=== PATIENT | female | born 1975 | race American Indian/Alaskan Native ===

== ENCOUNTER 2019-10-01 17:14 | Emergency (ER) | payer MEDICARE ==
[2019-10-01] MEDS ORDERED: ONDANSETRON 4 MG ODT TAB PO ONE (19:49)
[2019-10-01] MEDS ORDERED: ACETAMINOPHEN 500 MG TAB PO ONE (19:49)
--- NOTE | 2019-10-01 19:52 | Emergency Department Report ---
Chief Complaint: Upper Respiratory Infection Stated Complaint: COLD/HEAD PAIN - HPI History of Present Illness: 44 y/o F p/w a cc of Chest congestion, cough, MOSER, n/v and subj fever. +sick contacts - Exam Vital Signs: Vital Signs 10/01/19 19:48 Temperature 100.6 F H Pulse Rate 103 H Respiratory 20 Rate Blood Pressure 144/106 [Left] O2 Sat by Pulse 98 Oximetry MSE screening note: Focused history and physical exam performed. Due to findings the following was ordered: CXR, rapid flu tylenol, zofran odt ED Disposition for MSE Condition: Stable
--- NOTE | 2019-10-01 20:37 | XRay Report ---
CHEST 1 VIEW INDICATION / CLINICAL INFORMATION: cough, fever. COMPARISON: None available. FINDINGS: SUPPORT DEVICES: None. HEART / MEDIASTINUM: No significant abnormality. LUNGS / PLEURA: Patchy opacity is identified in both upper lungs and in the area of the lingular segm ent of the left upper lobe. No pneumothorax. ADDITIONAL FINDINGS: No significant additional findings. IMPRESSION: 1. Multifocal airspace opacities likely representing pneumonia.. Signer Name: Colton Perez MD Signed: 10/01/2019 8:32 PM Workstation Name: [id number]
[2019-10-01] MEDS ORDERED: methylPREDNISolone Sod Succinate 125 MG/2 ML INJ IM ONE (21:46)
[2019-10-01] MEDS ORDERED: IPRATROPIUM/ALBUTEROL SULFATE 3 ML AMPUL.NEB IH ONE (21:46)
[2019-10-01] MEDS ORDERED: levoFLOXacin 750 MG TAB PO ONE (21:47)
[2019-10-01 22:27] LABS: Basophils % (Auto) 0.3 % (0.0-1.8); Eosinophils % (Auto) 0.1 % (0.0-4.3); Hematocrit 37.5 % (30.3-42.9); Hemoglobin 12.8 gm/dl (10.1-14.3); Lymphocytes % (Auto) 16.2 % (13.4-35.0); Mean Corpuscular HGB Conc 34 % (30-34); Mean Corpuscular Volume 93 fl (79-97); Monocytes # (Auto) 0.2 K/mm3 (0.0-0.8); Monocytes % (Auto) 3.3 % (0.0-7.3); Platelet Count 119 K/mm3 (140-440); Red Blood Count 4.03 M/mm3 (3.65-5.03); Red Cell Distribution Width 14.1 % (13.2-15.2)
[2019-10-01 22:33] LABS: Alanine Aminotransferase 12 units/L (7-56); Albumin 4.2 g/dL (3.9-5); BUN/Creatinine Ratio 10; Blood Urea Nitrogen 7 mg/dL (7-17); Calcium 8.8 mg/dL (8.4-10.2); Hemolysis Index 2
--- NOTE | 2019-10-02 00:05 | Emergency Department Report ---
- General Chief Complaint: Upper Respiratory Infection Stated Complaint: COLD/HEAD PAIN Source: patient Mode of arrival: Wheelchair Limitations: No Limitations - History of Present Illness Initial Comments: Patient is a 44-year-old -[place] female with no past medical history who presents to the ED with complaint of acute onset persistent diffuse body aches and pains, numbness, sinus congestion, pleuritic chest wall pain, frontal sinus pressure and headache, and lack of appetite for the last 4 days. Patient denies dizziness, syncope, chest pain, shortness of breath, change in vision, abdominal pain, nausea and vomiting, dysuria, urinary frequency and urgency, or sore throat and back pain MD Complaint: fever, cough, rhinorrhea, nasal congestion, sinus pain, other (frontal headache, diffuse body aches and pains) -: Sudden, days(s) (4) Severity: severe Severity scale (0 -10): 7 Quality: sharp, aching Consistency: constant Improves With: nothing Worsens With: nothing Context: sick contacts Associated Symptoms: denies other symptoms, fever, chills, myalgias, headache, rhinorrhea, nasal congestion, cough. denies: sore throat, chest pain, shortness of breath, nausea, vomiting, diarrhea, dysuria, rash, right sweats, epistaxis, hoarseness, ear pain, other Treatments Prior to Arrival: Acetaminophen - Related Data Previous Rx's Medication Instructions Recorded Last Taken Type Benzonatate [Tessalon Perles] 100 mg PO Q8HR #30 capsule 10/02/19 Unknown Rx Cetirizine HCl [Zyrtec 10mg tab] 10 mg PO DAILY #30 tablet 10/02/19 Unknown Rx Ibuprofen [Motrin] 600 mg PO Q8H PRN #24 tablet 10/02/19 Unknown Rx levoFLOXacin [Levaquin] 750 mg PO QDAY #7 tablet 10/02/19 Unknown Rx methylPREDNISolone [Medrol 4MG 4 mg PO DAILY #21 tab.ds.pk 10/02/19 Unknown Rx DOSEPAK (21 tabs)] Allergies Allergy/AdvReac Type Severity Reaction Status Date / Time tomato Allergy Unknown Verified 10/01/19 17:20 ED Review of Systems ROS: Stated complaint: COLD/HEAD PAIN Other details as noted in HPI Constitutional: chills, fever, malaise, weakness Eyes: denies: eye pain, eye discharge, vision change ENT: congestion, other (frontal sinus tenderness ). denies: ear pain, throat pain Respiratory: cough, wheezing. denies: shortness of breath Cardiovascular: denies: chest pain, palpitations Endocrine: no symptoms reported Gastrointestinal: denies: abdominal pain, nausea, vomiting, diarrhea Genitourinary: denies: urgency, dysuria, discharge Musculoskeletal: denies: back pain, joint swelling, arthralgia Skin: denies: rash, lesions Neurological: headache. denies: weakness, paresthesias Psychiatric: denies: anxiety, depression Hematological/Lymphatic: denies: easy bleeding, easy bruising ED Past Medical Hx - Past Medical History Hx Diabetes: Yes - Surgical History Past Surgical History?: No - Social History Smoking Status: Current Every Day Smoker Substance Use Type: None - Medications Home Medications: Home Medications Medication Instructions Recorded Confirmed Last Taken Type Benzonatate [Tessalon Perles] 100 mg PO Q8HR #30 capsule 10/02/19 Unknown Rx Cetirizine HCl [Zyrtec 10mg tab] 10 mg PO DAILY #30 tablet 10/02/19 Unknown Rx Ibuprofen [Motrin] 600 mg PO Q8H PRN #24 tablet 10/02/19 Unknown Rx levoFLOXacin [Levaquin] 750 mg PO QDAY #7 tablet 10/02/19 Unknown Rx methylPREDNISolone [Medrol 4MG 4 mg PO DAILY #21 tab.ds.pk 10/02/19 Unknown Rx DOSEPAK (21 tabs)] ED Physical Exam - General Limitations: No Limitations General appearance: alert, in no apparent distress - Head Head exam: Present: atraumatic, normocephalic, normal inspection - Eye Eye exam: Present: normal appearance, PERRL, EOMI Pupils: Present: normal accommodation - ENT ENT exam: Present: normal orophraynx, mucous membranes moist, TM's normal bilaterally, normal external ear exam, other (palpable frontal sinus tenderness; grossly congested nasal passages) - Neck Neck exam: Present: normal inspection, full ROM. Absent: tenderness, lymphadenopathy - Respiratory Respiratory exam: Present: normal lung sounds bilaterally, wheezes (mildly diffuse coarse wheezes throughout). Absent: respiratory distress, chest wall tenderness, accessory muscle use, decreased breath sounds - Cardiovascular Cardiovascular Exam: Present: normal rhythm, tachycardia, normal heart sounds. Absent: systolic murmur, diastolic murmur, rubs, gallop - GI/Abdominal GI/Abdominal exam: Present: soft, normal bowel sounds. Absent: tenderness, guarding, rebound, hyperactive bowel sounds, hypoactive bowel sounds, organomegaly - Extremities Exam Extremities exam: Present: normal inspection, full ROM, normal capillary refill - Back Exam Back exam: Present: normal inspection, full ROM. Absent: tenderness, CVA tenderness (L), muscle spasm, paraspinal tenderness - Neurological Exam Neurological exam: Present: alert, oriented X3, CN II-XII intact, normal gait, reflexes normal - Psychiatric Psychiatric exam: Present: normal affect, normal mood - Skin Skin exam: Present: warm, dry, intact, normal color. Absent: rash ED Course Vital Signs 10/01/19 10/01/19 19:48 22:15 Temperature 100.6 F H Pulse Rate 103 H Pulse Rate [ 95 H Bilateral Throughout] Respiratory 20 Rate Respiratory 20 Rate [Bilateral Throughout] Blood Pressure 144/106 [Left] O2 Sat by Pulse 98 Oximetry ED Medical Decision Making - Lab Data Result diagrams: 10/01/19 21:51 10/01/19 21:51 - Radiology Data Radiology results: report reviewed, image reviewed Findings [facility] [address] [place] [address] XRay Report Signed Patient: MARYLOU HECTOR MR#: [id number] : 1975 Acct:[id number] Age/Sex: 44 / F ADM Date: 10/01/19 Loc: ED Attending Dr: Ordering Physician: ARNOLD GLORIA MD Date of Service: 10/01/19 Procedure(s): XR chest routine 2V Accession Number(s): [id number] cc: ARNOLD GLORIA MD Fluoro Time In Minutes: CHEST 1 VIEW INDICATION / CLINICAL INFORMATION: cough, fever. COMPARISON: None available. FINDINGS: SUPPORT DEVICES: None. HEART / MEDIASTINUM: No significant abnormality. LUNGS / PLEURA: Patchy opacity is identified in both upper lungs and in the area of the lingular segment of the left upper lobe. No pneumothorax. ADDITIONAL FINDINGS: No significant additional findings. IMPRESSION: 1. Multifocal airspace opacities likely representing pneumonia.. Signer Name: Colton Perez MD Signed: 10/01/2019 8:32 PM Workstation Name: [id number] Transcribed By: [place] Dictated By: Colton Perez MD Electronically Authenticated By: Colton Perez MD Signed Date/Time: 10/01/192031 DD/ 31 TD/TT: - Medical Decision Making This is a 44-year-old female who presented to the ED with complaint of persistent nasal and sinus congestion, dry cough, pleuritic chest pain, diffuse body aches and pains, intermittent fever and chills for the last 4 days. In the ED, patient is alert and oriented 3 and is not in any distress but tachycardic and febrile in triage. Lab results were reviewed and are all nonactionable except for mild hyponatremia 134 mmol per liter, mild hypokalemia of 3.5 mmol per liter, acute hyperglycemia of 1 13 mg/dL. Rapid influenza test was negative. Chest x-ray shows multifocal airspace opacities likely representing pneumonia. Patient was treated in the ED with DuoNeb, Solu-Medrol, Tylenol and Levaquin 750 mg by mouth 1. On reevaluation, patient felt better, pain has been well controlled with medications and fever and tachycardia also resolved. Patient was discharged home on antibiotics and pain medications and advised follow-up with her primary care physician in 5-7 days for reevaluation. Patient was advised to return to the ED immediately if symptoms get worse. - Differential Diagnosis Flu; URI; Pneumonia; UTI; Strep Pharyngitis Critical care attestation.: If time is entered above; I have spent that time in minutes in the direct care of this critically ill patient, excluding procedure time. ED Disposition Clinical Impression: Fever and chills, Flu-like symptoms, Acute upper respiratory infection Community acquired pneumonia Qualifiers: Laterality: unspecified laterality Qualified Code(s): J18.9 - Pneumonia, unspecified organism Disposition: DC-01 TO HOME OR SELFCARE Is pt being admited?: No Does the pt Need Aspirin: No Condition: Stable Instructions: Community-acquired Pneumonia (ED), Upper Respiratory Infection (ED), Fever in Adults (ED) Additional Instructions: Take medications with food, drink plenty of fluids and follow-up with her primary care physician in 5-7 days for reevaluation. Return to the ED immediately if symptoms get worse. Prescriptions: levoFLOXacin [Levaquin] 750 mg PO QDAY #7 tablet methylPREDNISolone [Medrol 4MG DOSEPAK (21 tabs)] 4 mg PO DAILY #21 tab.ds.pk Ibuprofen [Motrin] 600 mg PO Q8H PRN #24 tablet PRN Reason: Pain Benzonatate [Tessalon Perles] 100 mg PO Q8HR #30 capsule Cetirizine HCl [Zyrtec 10mg tab] 10 mg PO DAILY #30 tablet Referrals: QIAN MORALES MD [Staff Physician] - 7-10 days Time of Disposition: 00:14 Print Language: [place]
[2019-10-02 00:50] VITALS: BP 132/89
== END 2019-10-02 00:50 | disposition home or self-care (01) ==
LOC: ED 17:14
DX: J06.9 Acute upper respiratory infection, unspecified (principal); J18.9 Pneumonia, unspecified organism; E11.9 Type 2 diabetes mellitus without complications; F17.200 Nicotine dependence, unspecified, uncomplicated; Z79.1 Long term (current) use of non-steroidal anti-inflammatories (NSAID); Z79.899 Other long term (current) drug therapy; Z91.018 Allergy to other foods
CPT/HCPCS: 36415; 71046; 80053; 85025; 87400; 94640; 96372; 99284; J2930; 94644; Q0162